=== PATIENT | female | born 1930 | race Caucasian/White ===

== ENCOUNTER 2016-07-24 12:38 | Observation (INO) | payer MEDICARE ==
--- NOTE | ~2016-07-24 | TEE ---
Transesophageal Echocardiogram [address] [address] NAME: MALCOLM SCHRADER : [birth year] STATUS : DIS Mirta PAT#: [id number] AGE: 85 ADM/REG DATE : 07/24/16 MR#: [id number] REPORT SERV DATE: 07/25/16 DICTATED BY: MO FARIA DATE: 07/25/16 REPORT STATUS : Draft TRANSCRIBED BY: MODL DATE: 07/25/16 This is a transesophageal echocardiogram and cardioversion report. REQUESTING PHYSICIAN: Les Glynn M.D. INDICATION: Atrial flutter. PROCEDURE DESCRIPTION: After informed consent, the patient was sedated with propofol by the anesthesia department. The transesophageal probe was placed on the first attempt. After removal of the transesophageal probe, a single defibrillation was delivered. There were no complications. TRANSESOPHAGEAL ECHOCARDIOGRAM: 2-D: 1. The aortic valve leaflets are mildly thickened with preserved leaflet mobility. 2. There is no evidence of left atrial appendage thrombus. 3. Left ventricular size and systolic function appeared normal. 4. The mitral valve is structurally normal. 5. Left atrial size appears normal. 6. Right-sided chambers are normal in size. 7. The tricuspid valve is structurally normal. 8. There is no evidence of pericardial effusion. DOPPLER: Pulse wave Doppler in the left atrial appendage is less than 40 cm/second. COLOR FLOW: 1. There is bqdl-tc-tsrneqqh aortic regurgitation. 2. There is lhuo-az-awlkncqe mitral regurgitation. 3. There is mild tricuspid regurgitation. CARDIOVERSION: A single synchronized 200 joule biphasic defibrillation was delivered. Atrial flutter converted to normal sinus rhythm. IMPRESSION: 1. No evidence of left atrial appendage thrombus. 2. Spgy-zg-nrdgmjdb mitral and aortic regurgitation. 3. Successful cardioversion from atrial flutter to normal sinus rhythm. WW/FIDEL Mo Faria M.D. Transesophageal Echocardiogram [address] [address] NAME: MALCOLM SCHRADER : [birth year] STATUS : DIS Mirta PAT#: [id number] AGE: 85 ADM/REG DATE : 07/24/16 MR#: [id number] REPORT SERV DATE: 07/25/16 DICTATED BY: MO FARIA DATE: 07/25/16 REPORT STATUS : Draft TRANSCRIBED BY: FIDEL DATE: 07/25/16 / [id number] CC: Pepper Ruiz, MSN, GENERATION MECHANIC HELPER-BC Aman Aguilera M.D.
--- NOTE | ~2016-07-24 | HP ---
History And Physical [address] [place]. [address] NAME: RAVEN SCHRADER : [birth year] STATUS : ADM Mirta PAT#: [id number] AGE: 85 ADM/REG DATE : 07/24/16 MR#: [id number] REPORT SERV DATE: 07/24/16 DICTATED BY: LES GLYNN DATE: 07/24/16 REPORT STATUS : Draft TRANSCRIBED BY: MODL DATE: 07/24/16 DATE OF ADMISSION: 07/24/2016 Observation Unit Note SIFTER OPERATOR: Parvez Majano M.D. HISTORY OF PRESENT ILLNESS: Raven Schrader is an 85-year-old female who had apparently contacted the office last week. She had felt weak, had a lightheaded spell last week. Noted herself to have a heart rate of 150 beats per minute. The office advised her to come get a heart monitor, and she was returned this morning. There, her heart rate was 140 to 150 beats per minute, and she was sent to the emergency room. She denies chest pain, had a significant presyncopal event that appears to be related to RVR. She had been taking some metoprolol at home that she takes on an as-needed basis without significant improvement in her heart rate. No orthopnea, PND, or lower extremity edema. PHYSICAL EXAMINATION: VITAL SIGNS: On presentation, blood pressure 109/73, pulse 148, oxygen saturation 98% on room air. GENERAL: Appears stated age, no distress. EYES: Sclerae anicteric, no arcus senilis. MOUTH: Oral mucosa moist, lips acyanotic. NECK: Jugular venous pressure normal, no carotid bruits. LUNGS: Clear to auscultation bilaterally, normal inspiratory effort. CARDIAC: Regular rhythm. No gross murmurs. ABDOMEN: Soft, nondistended, nontender. EXTREMITIES: No edema. SKIN: Warm and dry. NEURO/PSYCH: Alert and oriented, nonfocal, mood appropriate. PAST MEDICAL HISTORY: Paroxysmal atrial fibrillation several years ago and reflux disease. HOME MEDICATIONS: Protonix 40 b.i.d., Celebrex 200 daily, tramadol 200 b.i.d., aspirin 325 daily, fish oil two capsules daily, Centrum Silver and a hair, skin, and nail vitamin. ALLERGIES: NONE KNOWN. SOCIAL HISTORY: No alcohol, tobacco, or illicits. FAMILY HISTORY: Notable for premature CAD in two brothers. REVIEW OF SYSTEMS: As per the HPI. Otherwise, all other review of systems negative. DATA: White count is 10.9, hemoglobin 11.8. BNP 407. Chest x-ray is read as no acute process. Creatinine 1.01. Potassium 4.3. History And Physical [address] [place]. [address] NAME: RAVEN SCHRADER : [birth year] STATUS : ADM Mirta PAT#: [id number] AGE: 85 ADM/REG DATE : 07/24/16 MR#: [id number] REPORT SERV DATE: 07/24/16 DICTATED BY: LES GLYNN DATE: 07/24/16 REPORT STATUS : Draft TRANSCRIBED BY: FIDEL DATE: 07/24/16 Electrocardiogram is atrial flutter with a ventricular response of 150 beats per minute. Does not have the classic negative saw-toothed pattern in the inferior leads and this may represent reverse typical atrial flutter. IMPRESSION: 1. Atrial flutter with rapid ventricular response. 2. History of paroxysmal atrial fibrillation. RECOMMENDATIONS: Admit for observation overnight; rate control with oral as well as IV Cardizem; begin oral anticoagulation. If remains in atrial flutter tomorrow morning, proceed with a WHITNEY cardioversion. I have discussed with the patient the procedure, rationale, logistics, and risk. She voices understanding. NONI/FIDEL Les Glynn M.D. / [id number] CC: Pepper Ruiz, MSN, MANAGER ENROLLMENT-BC
[2016-07-24 12:29] LABS: BASOPHILS 0.5 %; BASOPHILS ABSOLUTE 0.05 10/3/uL (0.0-0.16); EOSINOPHILS 1.2 %; EOSINOPHILS ABSOLUTE 0.13 10/3/uL (0.0-0.53); HEMOGLOBIN 11.8 g/dL (12.0-16.0); IMMATURE GRANULOCYTES 0.3 %; IMMATURE GRANULOCYTES ABSOLUTE 0.03 10/3/uL (0.0-0.11); LYMPHOCYTES 32.1 %; LYMPHOCYTES ABSOLUTE 3.51 10/3/uL (0.67-4.30); MEAN CORPUS HGB CONC 33.1 g/dL (32.0-36.0); MEAN PLATELET VOLUME 9.7 fL (9.2-13.0); MONOCYTES 5.5 %; NEUTROPHILS 60.4 %; NEUTROPHILS ABSOLUTE 6.62 10/3/uL (2.02-8.40); PLATELET COUNT 277 10/3/uL (150-400); RBC DISTRIBUTION WIDTH 14.5 % (12.0-16.0); RED CELL COUNT 3.93 10/6/uL (4.0-5.6)
[2016-07-24 12:30] LABS: HEMATOCRIT 35.7 % (36.0-48.0); MANUAL DIFF NO %; MEAN CORPUSCULAR VOLUME 90.8 fL (80-100); WHITE BLOOD CELLS 10.9 10/3/uL (4.5-10.5)
[2016-07-24 12:37] LABS: PARTIAL THROMBO TIME 26.9 SEC (22.5-37.2); PROTIME (NOT ORD) 13.5 SEC (12.0-14.5)
[~2016-07-24 12:38] MED LIST: NEXIUM40 PO; ULTRAM50 PO; VOLT25 PO
[2016-07-24 12:39] LABS: ASCORBIC ACID (UR NOT ORDER) NEG (NEG); BILIRUBIN, URINE NEGATIVE (NEG); ER URINALYSIS TAT 0 Hrs 15 Mins; KETONE, URINE NEGATIVE (NEG); LEUKOCYTE ESTERASE(NOT OR NEG (NEG); NITRITE (URINE) NEG (NEG); WBC (NOT ORDERED) (RFLEX) 1 (0-5)
[2016-07-24 12:44] LABS: CALCIUM, SERUM 8.9 MG/DL (8.5-10.4); CHEST PAIN PROFILE TAT 0 Hrs 20 Mins; CHLORIDE, SERUM 110 MMOL/L (96-112); CO2 (CARBON DIOXIDE) 24 MMOL/L (24-34); CREATININE 1.01 MG/DL (0.55-1.02); GFR AFRICAN AMERICAN 59 ML/MIN (>=60); GFR NON AFRICAN AMERICAN 51 ML/MIN (>=60); GLUCOSE, SERUM 95 MG/DL (60-99); POTASSIUM, SERUM 4.3 MMOL/L (3.5-5.3); SODIUM, SERUM 143 MMOL/L (135-148); TROPONIN I 0.03 NG/ML (<0.05)
[2016-07-24 12:46] LABS: BUN (BLOOD UREA NITROGEN) 30 MG/DL (6-23)
[2016-07-24] MEDS ORDERED: PROTONIX PO ×2 (14:12→14:13)
[2016-07-24] MEDS ORDERED: CELEBREX2 PO (14:13)
[2016-07-24] MEDS ORDERED: ULTRAM50 PO (14:14)
[2016-07-24] MEDS ORDERED: ASA5GR PO (14:15)
[2016-07-24] MEDS ORDERED: NORCO1 TA2 PO (14:15)
[2016-07-24] MEDS ORDERED: CENTRUM PO (14:16)
[2016-07-24] MEDS ORDERED: HAIR/SKIN/NAILS PO (14:16)
[2016-07-24] MEDS ORDERED: 8 HOUR650 MG PO (14:17)
[2016-07-24] MEDS ORDERED: FISH OIL1200 MG PO (14:21)
[2016-07-24 17:27] LABS: ALBUMIN 3.7 G/DL (3.5-5.0); ALKALINE PHOSPHATASE 51 U/L (45-117); FREE T4 0.92 NG/DL (0.76-1.46); SGPT(ALT) 38 U/L (5-65); TOTAL BILIRUBIN 0.2 MG/DL (0-1.2); TOTAL PROTEIN 7.5 G/DL (6.0-8.5)
[2016-07-24 17:28] LABS: DIRECT BILIRUBIN < 0.1 MG/DL (0.0-0.4); INDIRECT BILIRUBIN(NOT ORDER) 0.1 MG/DL (0.1-0.9); SGOT(AST) 41 U/L (5-40)
[2016-07-25 05:08] LABS: BASOPHILS 0.3 %; BASOPHILS ABSOLUTE 0.02 10/3/uL (0.0-0.16); EOSINOPHILS 2.6 %; EOSINOPHILS ABSOLUTE 0.17 10/3/uL (0.0-0.53); HEMOGLOBIN 10.7 g/dL (12.0-16.0); IMMATURE GRANULOCYTES 0.2 %; IMMATURE GRANULOCYTES ABSOLUTE 0.01 10/3/uL (0.0-0.11); LYMPHOCYTES 44.8 %; MEAN CORPUS HGB CONC 33.5 g/dL (32.0-36.0); MEAN CORPUSCULAR HEMOGLOB 30.6 pg (26.0-34.0); MEAN CORPUSCULAR VOLUME 91.1 fL (80-100); MEAN PLATELET VOLUME 9.1 fL (9.2-13.0); MONOCYTES 5.7 %; MONOCYTES ABSOLUTE 0.37 10/3/uL (0.21-1.20); NEUTROPHILS 46.4 %; NEUTROPHILS ABSOLUTE 3.01 10/3/uL (2.02-8.40); PLATELET COUNT 241 10/3/uL (150-400); RBC DISTRIBUTION WIDTH 14.4 % (12.0-16.0)
[2016-07-25 05:09] LABS: HEMATOCRIT 31.9 % (36.0-48.0); MANUAL DIFF NO %; WHITE BLOOD CELLS 6.5 10/3/uL (4.5-10.5)
[2016-07-25 05:15] LABS: INTERNATIONAL NORMAL RATI 1.2 UNITS (-); PROTIME (NOT ORD) 15.4 SEC (12.0-14.5)
[2016-07-25 05:24] LABS: CALCIUM, SERUM 8.5 MG/DL (8.5-10.4); CHLORIDE, SERUM 112 MMOL/L (96-112); CO2 (CARBON DIOXIDE) 26 MMOL/L (24-34); GFR AFRICAN AMERICAN 78 ML/MIN (>=60); GFR NON AFRICAN AMERICAN 68 ML/MIN (>=60); GLUCOSE, SERUM 97 MG/DL (60-99); POTASSIUM, SERUM 4.2 MMOL/L (3.5-5.3); SODIUM, SERUM 145 MMOL/L (135-148)
[2016-07-25 05:27] LABS: BUN (BLOOD UREA NITROGEN) 20 MG/DL (6-23)
[2016-07-25] MEDS ORDERED: ELIQUIS 5 MG TAB5 MG PO (15:11)
[2016-07-25] MEDS ORDERED: CARDCD120 PO (15:11)
[2016-09-22] MEDS ORDERED: ATEN25 PO (09:20)
[2016-09-22] MEDS ORDERED: NEXIUM40 PO (09:20)
[2016-09-22] MEDS ORDERED: FISH-EPA1000 MG PO (09:22)
[2016-09-22] MEDS ORDERED: NORCO1 TA1 PO (10:24)
[2016-09-25] MEDS ORDERED: IMOD PO (09:04)
== END 2016-07-25 17:23 | disposition home or self-care (01) ==
LOC: ER 12:38 → CDU1 14:44
PROVIDERS: Clinical Nurse Specialist; Emergency Medicine
DX: I48.92 Unspecified atrial flutter (principal); E11.9 Type 2 diabetes mellitus without complications; I48.0 Paroxysmal atrial fibrillation; K21.9 Gastro-esophageal reflux disease without esophagitis; Z98.890 Other specified postprocedural states; Z90.710 Acquired absence of both cervix and uterus
CPT/HCPCS: 71010; 80048; 80076; 81001; 83735; 83880; 84439; 84443; 84484; 85025; 85610; 85730; 92960; 93005; 93312; 93320; 93325; 96365; 96376; 99285; A9270-GY; G0378